=== PATIENT | female | born 1970 | race Two or more races ===

== ENCOUNTER 2019-02-24 08:40 | Outpatient (CLI) | payer OTHER ==
[~2019-02-24] VITALS: Ht 152.4 cm; Wt 65.8 kg
== END 2019-02-24 09:00 | disposition home or self-care (01) ==
LOC: OFIC 805 08:40
DX: H80.81 Other otosclerosis, right ear (principal); H93.11 Tinnitus, right ear

== ENCOUNTER → 2019-03-02 | Outpatient (CLI) | payer OTHER | END | disposition home or self-care (01) | LOC: TOM 16:24 | DX: H80.91 Unspecified otosclerosis, right ear (principal) ==